=== PATIENT | male | born 1985 | race Caucasian/White ===

== ENCOUNTER 2021-07-06 19:02 | Emergency (ER) | payer OTHER ==
[2021-07-06] MEDS ORDERED: HYDROCODON-ACE1 EAC4 PO (21:18)
[2021-07-06] MEDS ORDERED: IBUPROFEN600 MG PO (21:26)
== END 2021-07-06 21:30 | disposition home or self-care (01) ==
LOC: ER1 19:02
DX: S92.351A Displaced fracture of fifth metatarsal bone, right foot, initial encounter for closed fracture (principal); W22.8XXA Striking against or struck by other objects, initial encounter
CPT/HCPCS: 29515; 73630; 99283